=== PATIENT | male | born 1960 | race Caucasian/White ===

== ENCOUNTER 2017-05-23 08:15 | Emergency (ER) | payer SELFPAY ==
[~2017-05-23] VITALS: Ht 177.8 cm; Wt 80.0 kg
[~2017-05-23 08:15] MED LIST: AMLO2.5T PO; ASPI325T PO; LIPI40TA PO; QUET1TAB9 PO; TRIL300T PO
[2017-05-23 08:19] VITALS: BP 157/77; PULSE 66; RESP 15; TEMP 98.2; O2SAT 98
[2017-05-23 08:39] VITALS: BP 179/83; PULSE 59; RESP 16; O2SAT 98
[2017-05-23] MEDS ORDERED: MORPHINE SULFATE 4 MG/ML INJ IV PUSH ONE (09:15)
[2017-05-23] MEDS ORDERED: ONDANSETRON HCL 4 MG/2 ML VIAL IV PUSH ONE (09:15)
[2017-05-23 09:40] LABS: AUTOMATED NEUTROPHIL # 7.6 TH/MM3 (1.8-7.7); BASOPHIL % 0.5 % (0.0-2.0); EOSINOPHIL # 0.1 TH/MM3 (0-0.4); EOSINOPHIL % 0.9 % (0.0-4.0); HEMATOCRIT 44.2 % (39.0-51.0); HEMO FLAGS DIFF FINAL; LYMPH % 9.7 % (9.0-44.0); LYMPHOCYTE # 0.9 TH/MM3 (1.0-4.8); MEAN CELL VOLUME 83.9 FL (80.0-100.0); MEAN CORPUSCULAR HEMOGLOBIN 27.5 PG (27.0-34.0); MEAN CORPUSCULAR HGB CONC 32.7 % (32.0-36.0); MONO % 6.7 % (0.0-8.0); NEUT % 82.2 % (16.0-70.0); PLATELET COUNT 249 TH/MM3 (150-450); RED BLOOD COUNT 5.27 MIL/MM3 (4.50-5.90); RED CELL DISTRIBUTION WIDTH 13.2 % (11.6-17.2); WHITE BLOOD COUNT 9.3 TH/MM3 (4.0-11.0)
[2017-05-23] MEDS ORDERED: MORPHINE SULFATE 8 MG/ML INJ IV PUSH ONE (09:45)
[2017-05-23] MEDS ORDERED: PROPOFOL 200 MG/20 ML AMP IV ONE (10:00)
[2017-05-23 10:10] LABS: BICARBONATE 28.8 MEQ/L (21.0-32.0)
[2017-05-23 10:24] VITALS: O2SAT 99
[2017-05-23 10:25] VITALS: O2SAT 99
[2017-05-23 10:36] VITALS: BP 164/79; PULSE 63; RESP 16; O2SAT 100
--- NOTE | 2017-05-23 10:37 | PD ---
Physical Exam Date Seen by Provider: May 23, 2017 Time Seen by Provider: 10:15 Narrative I was asked to assist Dr. Lala with conscious sedation and reduction of an inguinal hernia. Data Data Last Documented VS Vital Signs Date Time Temp Pulse Resp B/P Pulse Ox O2 Delivery O2 Flow Rate FiO2 05/23/17 10:25 99 05/23/17 10:24 3.00 05/23/17 08:39 59 16 179/83 Room Air 05/23/17 08:19 98.2 Orders Complete Blood Count With Diff (05/23/17 09:06) Basic Metabolic Panel (Bmp) (05/23/17 09:06) Iv Access Insert/Monitor (05/23/17 09:06) Morphine Inj (Morphine Inj) (05/23/17 09:15) Ondansetron Inj (Zofran Inj) (05/23/17 09:15) Morphine Inj (Morphine Inj) (05/23/17 09:45) Propofol 200 Mg/20 Ml Inj (Diprivan 200 (05/23/17 10:00) Support, Scrotal Med Ea (05/23/17 10:25) ^ Scrotal Support (05/23/17 10:25) Labs Laboratory Tests Test 05/23/17 08:30 White Blood Count 9.3 TH/MM3 Red Blood Count 5.27 MIL/MM3 Hemoglobin 14.5 GM/DL Hematocrit 44.2 % Mean Corpuscular Volume 83.9 FL Mean Corpuscular Hemoglobin 27.5 PG Mean Corpuscular Hemoglobin 32.7 % Concent Red Cell Distribution Width 13.2 % Platelet Count 249 TH/MM3 Mean Platelet Volume 7.8 FL Neutrophils (%) (Auto) 82.2 % Lymphocytes (%) (Auto) 9.7 % Monocytes (%) (Auto) 6.7 % Eosinophils (%) (Auto) 0.9 % Basophils (%) (Auto) 0.5 % Neutrophils # (Auto) 7.6 TH/MM3 Lymphocytes # (Auto) 0.9 TH/MM3 Monocytes # (Auto) 0.6 TH/MM3 Eosinophils # (Auto) 0.1 TH/MM3 Basophils # (Auto) 0.0 TH/MM3 CBC Comment DIFF FINAL Differential Comment Sodium Level 137 MEQ/L Potassium Level 4.0 MEQ/L Chloride Level 103 MEQ/L Carbon Dioxide Level 28.8 MEQ/L Anion Gap 5 MEQ/L Blood Urea Nitrogen 12 MG/DL Creatinine 1.06 MG/DL Estimat Glomerular Filtration 72 ML/MIN Rate Random Glucose 94 MG/DL Calcium Level 9.0 MG/DL MDM Supervised Visit with JULIETA: No Procedures Procedure Narrative Time out was called. The correct patient was identified as was the correct location. Following conscious sedation and icing of the inguinal region, the right inguinal hernia was easily reduced using compression. Rosalinda Harvey MD May 23, 2017 10:37
--- NOTE | 2017-05-23 10:46 | PD ---
HPI Chief Complaint: Abdominal Pain Time Seen by Provider: 09:04 Travel History International Travel<30 days: No Contact w/Intl Traveler<30days: No Traveled to known affect area: No History of Present Illness HPI 56 y/o male presents with right lower quadrant abdominal pain over his hernia that will not go back and over the past 12 hours. He states he's had it before but will usually go back in. He denies any other concurrent complaints. Quality pain is sharp. Severity is moderate. Pain is worse with movement. PFSH Past Medical History Heart Rhythm Problems: Yes (HEART MURMUR) High Cholesterol: Yes Hypertension: Yes Inguinal Hernia: Yes (LEFT HERNIA REPAIR) Schizophrenia: Yes (SCHIZOAFFECTIVE ) Tetanus Vaccination: > 5 Years Influenza Vaccination: No Social History Alcohol Use: No Tobacco Use: No Substance Use: No Allergies-Medications (Allergen,Severity, Reaction): Coded Allergies: No Known Allergies (Unverified , 12/18/16) Reported Meds & Prescriptions Reported Meds & Active Scripts Active Review of Systems Except as stated in HPI: all other systems reviewed are Neg Physical Exam Narrative GENERAL: Well-nourished, well-developed patient. SKIN: Warm and dry. HEAD: Normocephalic and atraumatic. EYES: No injection or drainage. ENT: No nasal drainage noted. NECK: Supple, trachea midline. CARDIOVASCULAR: Regular rate and rhythm RESPIRATORY: Breath sounds equal bilaterally. No accessory muscle use. GASTROINTESTINAL: Abdomen soft, large right inguinal hernia noted without overlying skin changes that I am unable to reduce on initial attempt, nondistended. NEUROLOGICAL: Awake and alert. Motor and sensory grossly within normal limits. Normal speech. Data Data Last Documented VS Vital Signs Date Time Temp Pulse Resp B/P Pulse Ox O2 Delivery O2 Flow Rate FiO2 05/23/17 10:36 63 16 164/79 100 Nasal Cannula 2 05/23/17 08:19 98.2 Orders Complete Blood Count With Diff (05/23/17 09:06) Basic Metabolic Panel (Bmp) (05/23/17 09:06) Iv Access Insert/Monitor (05/23/17 09:06) Morphine Inj (Morphine Inj) (05/23/17 09:15) Ondansetron Inj (Zofran Inj) (05/23/17 09:15) Morphine Inj (Morphine Inj) (05/23/17 09:45) Propofol 200 Mg/20 Ml Inj (Diprivan 200 (05/23/17 10:00) Support, Scrotal Med Ea (05/23/17 10:25) ^ Scrotal Support (05/23/17 10:25) Mandatory Outpatient Referral (05/23/17 10:46) Labs Laboratory Tests Test 05/23/17 08:30 White Blood Count 9.3 TH/MM3 Red Blood Count 5.27 MIL/MM3 Hemoglobin 14.5 GM/DL Hematocrit 44.2 % Mean Corpuscular Volume 83.9 FL Mean Corpuscular Hemoglobin 27.5 PG Mean Corpuscular Hemoglobin 32.7 % Concent Red Cell Distribution Width 13.2 % Platelet Count 249 TH/MM3 Mean Platelet Volume 7.8 FL Neutrophils (%) (Auto) 82.2 % Lymphocytes (%) (Auto) 9.7 % Monocytes (%) (Auto) 6.7 % Eosinophils (%) (Auto) 0.9 % Basophils (%) (Auto) 0.5 % Neutrophils # (Auto) 7.6 TH/MM3 Lymphocytes # (Auto) 0.9 TH/MM3 Monocytes # (Auto) 0.6 TH/MM3 Eosinophils # (Auto) 0.1 TH/MM3 Basophils # (Auto) 0.0 TH/MM3 CBC Comment DIFF FINAL Differential Comment Sodium Level 137 MEQ/L Potassium Level 4.0 MEQ/L Chloride Level 103 MEQ/L Carbon Dioxide Level 28.8 MEQ/L Anion Gap 5 MEQ/L Blood Urea Nitrogen 12 MG/DL Creatinine 1.06 MG/DL Estimat Glomerular Filtration 72 ML/MIN Rate Random Glucose 94 MG/DL Calcium Level 9.0 MG/DL [facility] Medical Decision Making Medical Screen Exam Complete: Yes Emergency Medical Condition: Yes Medical Record Reviewed: Yes (past history confirmed) Interpretation(s) CBC & BMP Diagram 05/23/17 08:30 Differential Diagnosis Hernia, obstruction, mass Narrative Course will check labs and place flat with ice pack and try to reduce again Unable to reduce will dose with morphine and discuss with Gen. surgery Still unable to reduce will perform conscious sedation and have colleague assist with reduction Patient denies any new complaints and states that they are feeling better. Patient happy with care, all questions answered. Patient knows that follow up is incumbent on them and to return to the emergency room immediately if new or worsening symptoms develop. Patient given strict return precautions, vitals reviewed and are normal, agrees to further workup as an outpatient. mandatory referral placed Procedures Procedure Narrative After the risks and benefits were discussed the following procedure was performed: MODERATE SEDATION: The patient was placed on a school aide and pulse oximetry. An ambu bag and suction was immediately available at bedside. The patient was monitored by the nurse. Oxygen saturation, heart rate and blood pressure were monitored. Procedural sedation was acheived using 100mg of propofol . The patient was observed until awake and alert. Procedural Sedation time in attendance was 15 minutes. Physician Communication Physician Communication dr ba states to perform conscious sedation and reduce and call if unable to after that, refer for outpatient follow-up Diagnosis Primary Impression: Inguinal hernia Qualified Code: K40.91 - Unilateral recurrent inguinal hernia without obstruction or gangrene Referrals: Gómez Ba MD call for appointment Patient Instructions: General Instructions Additional Instructions: return as needed, wear scrotal support, follow with surgeon- mandatory consult placed Med/Other Pt SpecificInfo: No Change to Meds Disposition: 01 DISCHARGE HOME Condition: Stable Pauline Lala MD May 23, 2017 10:46
== END 2017-05-23 11:42 | disposition home or self-care (01) ==
LOC: NEPE 08:15
DX: K40.91 Unilateral inguinal hernia, without obstruction or gangrene, recurrent (principal); E78.00 Pure hypercholesterolemia, unspecified; I10 Essential (primary) hypertension
CPT/HCPCS: 49999; 80048; 85025; 96374; 96375; 99152; 99285; J2270; J2405

== ENCOUNTER 2017-05-28 05:11 | Inpatient (IN) | payer SELFPAY ==
[2017-05-28] VITALS (10 sets, daily range): BP systolic 119–182; BP diastolic 67–84; PULSE 48–88; RESP 16–20; TEMP 96–98; O2SAT 95–100
[~2017-05-28] VITALS: Ht 167.6 cm; Wt 82.0 kg
--- NOTE | 2017-05-28 05:23 | PD ---
HPI Chief Complaint: Abdominal Pain Time Seen by Provider: 05:14 Travel History International Travel<30 days: No Contact w/Intl Traveler<30days: No Traveled to known affect area: No History of Present Illness HPI This is a 56-year-old male who has a known right inguinal hernia who presents to the emergency department unable to reduce his hernia today. He has some right lower quadrant abdominal pain, moderate severity, constant associated with pain in his groin. He was seen here several days ago in the emergency department and required conscious sedation for reduction of his hernia. He has been working on establishing with patient assistance. He denies any vomiting, diarrhea or constipation. PFSH Past Medical History Heart Rhythm Problems: Yes (HEART MURMUR) High Cholesterol: Yes Diminished Hearing: No Hypertension: Yes Inguinal Hernia: Yes (LEFT HERNIA REPAIR) Schizophrenia: Yes (SCHIZOAFFECTIVE ) Tetanus Vaccination: Unknown Social History Alcohol Use: No Tobacco Use: No Substance Use: No Allergies-Medications (Allergen,Severity, Reaction): Coded Allergies: No Known Allergies (Unverified , 05/28/17) Reported Meds & Prescriptions Reported Meds & Active Scripts Active Review of Systems Except as stated in HPI: all other systems reviewed are Neg Physical Exam Narrative GENERAL:Well appearing, no acute distress SKIN: Focused skin assessment warm and dry. HEAD: Atraumatic. Normocephalic. EYES: Pupils equal and round. No injection or drainage. ENT: Moist mucous membranes NECK: Trachea midline. CARDIOVASCULAR: Regular rate and rhythm. 4/6 murmur heard over the left upper sternal border. RESPIRATORY: Clear to auscultation. Breath sounds equal bilaterally. GASTROINTESTINAL: Abdomen soft, non-tender, nondistended. : Large right inguinal hernia MUSCULOSKELETAL: No obvious deformities. NEUROLOGICAL: Awake and alert. No obvious cranial nerve deficits. Moving all extremities. PSYCHIATRIC: Appropriate mood and affect; insight and judgment normal. Data Data Last Documented VS Vital Signs Date Time Temp Pulse Resp B/P Pulse Ox O2 Delivery O2 Flow Rate FiO2 05/28/17 06:10 100 15.00 100 05/28/17 05:15 97.4 54 16 182/84 Orders Hydromorphone Pf Inj (Dilaudid Pf Inj) (05/28/17 05:30) ^ Insert Iv (05/28/17 05:21) Midazolam Inj (Versed Inj) (05/28/17 06:00) Propofol 200 Mg/20 Ml Inj (Diprivan 200 (05/28/17 06:15) [facility] Medical Decision Making Medical Screen Exam Complete: Yes Emergency Medical Condition: Yes Interpretation(s) Afebrile, no tachycardia, hypertensive Differential Diagnosis Incarcerated inguinal hernia, strangulated inguinal hernia, bowel obstruction Narrative Course This is a 56-year-old male who presents to the emergency department with pain in the right groin consistent with an incarcerated hernia. He has no signs of bowel obstruction. I attempted to reduce the hernia with Versed and pain control but was unsuccessful. Ultimately the decision was made to perform a conscious sedation. I was able to reduce the hernia after sedation with propofol. I spoke to Dr. Che who is on-call for general surgery. This is the second time the patient's been here within the week with an incarcerated hernia requiring conscious sedation. He is agreed to see the patient in the emergency department and see if there are any options for him Procedures Procedure Narrative After the risks and benefits were discussed the following procedure was performed: MODERATE SEDATION: The patient was placed on a monitor worker and pulse oximetry. An ambu bag and suction was immediately available at bedside. The patient was monitored by the nurse. Oxygen saturation, heart rate and blood pressure were monitored. Procedural sedation was acheived using 80 mg propofol . The patient was observed until awake and alert. Procedural Sedation time in attendance was 35 minutes. Incarcerated right inguinal hernia was reduced at the bedside by me. Diagnosis Primary Impression: Inguinal hernia Qualified Code: K40.91 - Unilateral recurrent inguinal hernia without obstruction or gangrene Patient Instructions: General Instructions Additional Instructions: If you develop severe or worsening abdominal pain, fever>100.4, persistent vomiting or inability to eat or drink return to the emergency department immediately. Follow up with your primary care physician in 1-2 days for a check-up. Med/Other Pt SpecificInfo: No Change to Meds Disposition: 01 DISCHARGE HOME Condition: Stable Payton Toro MD May 28, 2017 05:23
[2017-05-28] MEDS ORDERED: HYDROmorphone HCL PF 1 MG/ML VIAL IV PUSH ONE (05:30)
[2017-05-28] MEDS ORDERED: MIDAZOLAM HCL 2 MG/2 ML VIAL IV PUSH ONE (06:00)
[2017-05-28] MEDS ORDERED: PROPOFOL 200 MG/20 ML AMP IV ONE ×2 (06:15→12:00)
--- NOTE | 2017-05-28 09:17 | PD ---
Physical Exam Date Seen by Provider: May 28, 2017 Time Seen by Provider: 09:16 Narrative 56-year-old male came to the emergency room with history of inguinal hernia that had to be reduced under conscious sedation. Case was signed out to me by the previous ER physician to be seen by the general surgeon. Please refer to her notes in physical exam regarding further details. Dr. Che came and saw the patient and would like this patient to be admitted to medical service so that he can operate on him. Awaiting for medical clearance. I spoke with the family medicine team who has accepted the patient. Data Data Last Documented VS Vital Signs Date Time Temp Pulse Resp B/P Pulse Ox O2 Delivery O2 Flow Rate FiO2 05/28/17 08:56 98.0 54 18 119/67 99 05/28/17 07:05 Nasal Cannula 2 05/28/17 06:10 100 Orders Hydromorphone Pf Inj (Dilaudid Pf Inj) (05/28/17 05:30) ^ Insert Iv (05/28/17 05:21) Midazolam Inj (Versed Inj) (05/28/17 06:00) Propofol 200 Mg/20 Ml Inj (Diprivan 200 (05/28/17 06:15) Consult Luis M Nfs (05/28/17 ) Consent (05/28/17 09:01) Complete Blood Count With Diff (05/28/17 09:04) Prothrombin Time / Inr (Pt) (05/28/17 09:04) Comprehensive Metabolic Panel (05/28/17 09:04) Sodium Chlor 0.9% 1000 Ml Inj (Ns 1000 M (05/28/17 10:00) Diet Npo (05/28/17 Breakfast) Admit Order (Ed Use Only) (05/28/17 09:17) Labs Laboratory Tests Test 05/28/17 09:10 White Blood Count 8.1 TH/MM3 Red Blood Count 4.64 MIL/MM3 Hemoglobin 12.9 GM/DL Hematocrit 38.7 % Mean Corpuscular Volume 83.4 FL Mean Corpuscular Hemoglobin 27.8 PG Mean Corpuscular Hemoglobin 33.3 % Concent Red Cell Distribution Width 13.7 % Platelet Count 239 TH/MM3 Mean Platelet Volume 7.3 FL Neutrophils (%) (Auto) 77.6 % Lymphocytes (%) (Auto) 13.5 % Monocytes (%) (Auto) 7.4 % Eosinophils (%) (Auto) 0.9 % Basophils (%) (Auto) 0.6 % Neutrophils # (Auto) 6.3 TH/MM3 Lymphocytes # (Auto) 1.1 TH/MM3 Monocytes # (Auto) 0.6 TH/MM3 Eosinophils # (Auto) 0.1 TH/MM3 Basophils # (Auto) 0.0 TH/MM3 CBC Comment DIFF FINAL Differential Comment Prothrombin Time 11.2 SEC Prothromb Time International 1.0 RATIO Ratio Sodium Level 138 MEQ/L Potassium Level 4.1 MEQ/L Chloride Level 104 MEQ/L Carbon Dioxide Level 28.0 MEQ/L Anion Gap 6 MEQ/L Blood Urea Nitrogen 21 MG/DL Creatinine 0.90 MG/DL Estimat Glomerular Filtration 87 ML/MIN Rate Random Glucose 90 MG/DL Calcium Level 8.8 MG/DL Total Bilirubin 0.4 MG/DL Aspartate Amino Transf 11 U/L (AST/SGOT) Alanine Aminotransferase 15 U/L (ALT/SGPT) Alkaline Phosphatase 67 U/L Total Protein 5.9 GM/DL Albumin 3.3 GM/DL [facility] Supervised Visit with JULIETA: No Diagnosis Primary Impression: Inguinal hernia Qualified Code: K40.91 - Unilateral recurrent inguinal hernia without obstruction or gangrene Admitting Information Admitting Physician Requests: Admit Patient Instructions: General Instructions Additional Instruction: If you develop severe or worsening abdominal pain, fever>100.4, persistent vomiting or inability to eat or drink return to the emergency department immediately. Follow up with your primary care physician in 1-2 days for a check-up. Scripts Oxcarbazepine 300 Mg [id number] Mg PO BID #60 TAB Ref 0 Prov:Katie Brooks MD R2 05/29/17 Quetiapine 400 Mg [id number] Mg PO HS #30 TAB Ref 0 Prov:Katie Brooks MD R2 05/29/17 Atorvastatin 40 Mg Tab40 Mg PO HS #30 TAB Ref 0 Prov:Katie Brooks MD R2 05/29/17 Merced Lopez MD May 28, 2017 09:17
--- NOTE | 2017-05-28 09:35 | HHI.HP ---
[facility] Service Family Medicine Primary Care Physician No Primary Care Physician Admission Diagnosis recurrent incarcerated inguinal hernia Diagnoses: International Travel<30 Days: No Contact w/Intl Traveler<30days: No Known Affected Area: No History of Present Illness Mr. Gamez is a 56-year-old man with a history of left-sided hernia repair, schizoaffective disorder, hypertension, hypercholesterolemia who presented to the emergency department with an incarcerated rght-sided direct inguinal hernia. Patient received conscious sedation and had his hernia reduced in the emergency department. Dr. Che of general surgery was consulted and plans to take patient to the OR this afternoon. The patient has a h/o left sided inguinal hernia, which was repaired about 30 years ago. Pt reports that it has always been a little puffy on the right. The patient became aware of the right-sided hernia around the time when he became homeless about 1 year and 4 months ago. Since that time, it used to be hard when it was out, but it would go back in at night. night before coming in the first time, he could sleep, but it didn't go back in all night, then it reduced in the morning. Then between Thursday night and Thursday morning, it would not reduce. both ED visits, Patient was last seen on May 23 for the same problem of an incarcerated right sided direct inguinal hernia, which was reduced with conscious sedation with propofol and non-operative reduction. Patient denies any fever, chills, nausea, vomiting, but he does endorse constipation. Patient reports that he can walk up a flight of stairs without dyspnea. He denies any h/o cardiogenic syncope. Pt does have a heart murmur, but is asymptomatic. (Hayder Lynch MD R1) Review of Systems Constitutional: COMPLAINS OF: Change in appetite (dec joana associated with hernia pain), DENIES: Fever, Chills Endocrine: DENIES: Polydipsia, Polyuria Eyes: DENIES: Blurred vision, Diplopia, Vision loss Ears, nose, mouth, throat: DENIES: Hearing loss, Throat pain, Running Nose ( stuffy nose), Sinus Pain Respiratory: DENIES: Cough, Shortness of breath Cardiovascular: DENIES: Chest pain, Syncope, Dyspnea on Exertion, Lower Extremity Edema Gastrointestinal: COMPLAINS OF: Constipation, DENIES: Abdominal pain, Black stools, Bloody stools, Diarrhea, Nausea, Vomiting Genitourinary: DENIES: Dysuria Musculoskeletal: COMPLAINS OF: Back pain (chronic ), Neck pain (chronic ) Integumentary: DENIES: Rash Hematologic/lymphatic: DENIES: Bruising, Lymphadenopathy Neurologic: DENIES: Headache, Seizures Psychiatric: DENIES: Mood changes, Depression, Suicidal Ideation (Hayder Lynch MD R1) Past Family Social History Past Medical History schizoaffective - not currently on medication HTN Hypercholesterolemia Past Surgical History hernia repair on left 30 years ago Reported Medications Medication List Medications Last Reconciled on 12/18/16 11:45 by FELIX MONTE Atorvastatin (Lipitor)40 Mg Tab40 Mg PO HS #30 TAB Ref 3 Prov: Lexi Machuca MD 10/13/16 Quetiapine 200 Mg [id number] Mg PO HS #30 TAB Ref 0 Reported 10/13/16 Aspirin 325 Mg [id number] Mg PO DAILY #30 TAB Ref 0 Reported 10/13/16 Oxcarbazepine (Trileptal)300 Mg [id number] Mg PO BID #60 TAB Ref 0 Reported 10/13/16 Patient reports an adverse reaction to amlodipine and lisinopril. (Hayder Lynch MD R1) Allergies: Coded Allergies: Amlodipine (Verified Adverse Reaction, Unknown, 05/28/17) Lisinopril (Verified Adverse Reaction, Unknown, 05/28/17) Family History father had triple CABG mother with no serious medical problems Social History homeless went back to school. worked in [employer] for 21 years. 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 filed for SSD, but didn't want to appear in front of a territory business manager. No FREDERICK. (Hayder Lynch MD R1) Physical Exam Vital Signs Vital Signs Date Time Temp Pulse Resp B/P Pulse Ox O2 Delivery O2 Flow Rate FiO2 05/28/17 08:56 98.0 54 18 119/67 99 05/28/17 07:05 97.8 48 18 128/69 100 Nasal Cannula 2 05/28/17 07:00 18 05/28/17 06:51 15 05/28/17 06:10 100 15.00 100 05/28/17 05:15 97.4 54 16 182/84 99 Physical Exam GENERAL: This is a well-nourished, well-developed middle-aged male patient, in no apparent distress. SKIN: No rashes, ecchymoses or lesions. Cool and dry. HEAD: Atraumatic. Normocephalic. EYES: Pupils equal round and reactive. Extraocular motions intact. No scleral icterus. No injection or drainage. ENT: Nose without bleeding, purulent drainage or septal hematoma. Throat without erythema, tonsillar hypertrophy or exudate. Uvula midline. Airway patent. NECK: Trachea midline. No JVD or lymphadenopathy. Supple, nontender, no meningeal signs. CARDIOVASCULAR: Regular rate and rhythm without murmurs, gallops, or rubs. RESPIRATORY: Except for some mild inspiratory crackles at the right lung base, lungs clear to auscultation with breath sounds equal bilaterally. No wheezes or rhonchi. GASTROINTESTINAL: Soft bulge between the right side of the abdomen right inguinal area. Otherwise, abdomen soft, non-tender, nondistended. No hepato- splenomegaly, or palpable masses. No guarding. MUSCULOSKELETAL: Extremities without clubbing, cyanosis, or edema. No joint tenderness, effusion, or edema noted. No calf tenderness. NEUROLOGICAL: Awake and alert. Cranial nerves II through XII grossly intact. Motor and sensory grossly within normal limits. Normal speech. (Hayder Lynch MD R1) Course In the emergency department, patient had IV insertion, Dilaudid 1 mg IV 1, Versed 2 mg IV 1, propofol 80 mg IV 1, surgery consult, surgical consent, nothing by mouth, normal saline IV, CMP, PT/INR, CBC, admission order. (Hayder Lynch MD R1) Assessment and Plan Assessment and Plan Mr. Gamez is a 56-year-old man with a history of schizoaffective disorder, hypertension, hypercholesterolemia who presented to the emergency department with an incarcerated direct inguinal hernia. Patient received conscious sedation and had his hernia reduced in the emergency department. Dr. Che of general surgery was consulted and plans to take patient to the OR either this afternoon or tomorrow. Patient is medically optimized and a good candidate for this surgery. Code Status Full code Discussed Condition With Patient seen and discussed with Dr. Marquis. w/d/w Dr. Warren. (Hayder Lynch MD R1) Attending Attestation Patient seen and examined, discussed with resident team. I agree with assessment and management as documented and discussed with me. The patient has been seen and examined. The chart and all resident notes have been reviewed. I agree that inpatient care is appropriate and that a two midnight stay is expected for the reasons documented in the resident history and physical. I have discussed this with the resident and certify the resident s order for inpatient admission. Catarino Gamez is a 56yo gentleman with h/o right inguinal hernia and left inguinal hernia s/p repair admitted for surgical management of incarcerated right inguinal hernia. Pt seen in PACU after his surgery. At the time of my interview/exam, he is without complaints. He denies pain at surgical site, nausea, SOB, chest pain. He is interested in seeking care again for his schizoaffective disorder as well as HTN. Appreciate Dr. York, general surgery, in his care for this patient. (Nataliia Warren MD) Problem List: (1) Inguinal hernia Status: Acute Plan: Mr. Gamez is a 56-year-old man with a history of schizoaffective disorder, hypertension, hypercholesterolemia who presented to the emergency department with an incarcerated direct inguinal hernia. Patient received conscious sedation and had his hernia reduced in the emergency department. Dr. Che of general surgery was consulted and plans to take patient to the OR either this afternoon or tomorrow. Patient is medically optimized and a good candidate for this surgery. Admit to inpatient for surgery Nothing by mouth Maintenance IV fluids with normal saline IV at 122 mL per hour Monitor intake and output Monitor vital signs CBC, CMP, coags, magnesium Pain control as needed Zofran for nausea as needed Anticonstipation medications: Ivonne-Colace 1 tab by mouth twice a day and other medications when necessary Pharmacologic DVT prophylaxis is contraindicated given the patient will be taken to surgery soon; hold patient's home medication of aspirin SCDs bilaterally Incentive spirometer (2) Schizoaffective disorder Status: Acute Plan: Patient with history of schizophrenia disorder has not been on his medications. Patient wants to restart his medications. He reports that he like to follow-up with Restart patient's home medications of Trileptal, Seroquel (3) HTN (hypertension) Status: Acute Plan: Patient's blood pressure currently well-controlled. We'll consider adding antihypertensives if needed. Case management consult to help pt establish with (4) Hypercholesteremia Status: Acute Plan: Patient has been unable to take his Lipitor. Restart patient's home medication of Lipitor Case management consult to help patient establish with DrGalen (5) Contraindication to anticoagulation therapy Status: Acute Plan: Pharmacologic DVT prophylaxis is contraindicated given the patient will be taken to surgery soon; hold patient's home medication of aspirin (6) FEN, ppx Status: Acute Plan: Fluids: Maintenance IV fluids with Normal saline at 122 mL per hour Electrolytes: Monitor and replete Nutrition: Nothing by mouth DVT prophylaxis: Contraindicated as above GI prophylaxis: Not currently indicated (Hayder Lynch MD R1) Physician Certification 2 Midnight Certification Type: Admission for Inpatient Services Order for Inpatient Services The services are ordered in accordance with Medicare regulations or non- Medicare payer requirements, as applicable. In the case of services not specified as inpatient-only, they are appropriately provided as inpatient services in accordance with the 2-midnight benchmark. Estimated LOS (days): 2 2 days is the estimated time the patient will need to remain in the hospital, assuming treatment plan goals are met and no additional complications. Post-Hospital Plan: Not yet determined (Hayder Lynch MD R1) Problem Qualifiers (1) Inguinal hernia: Qualified Code: K40.91 - Unilateral recurrent inguinal hernia without obstruction or gangrene Hayder Lynch MD R1 May 28, 2017 09:35 Nataliia Warren MD May 28, 2017 21:08
[2017-05-28 09:43] LABS: AUTOMATED NEUTROPHIL # 6.3 TH/MM3 (1.8-7.7); BASOPHIL % 0.6 % (0.0-2.0); EOSINOPHIL # 0.1 TH/MM3 (0-0.4); EOSINOPHIL % 0.9 % (0.0-4.0); HEMATOCRIT 38.7 % (39.0-51.0); HEMO FLAGS DIFF FINAL; LYMPH % 13.5 % (9.0-44.0); LYMPHOCYTE # 1.1 TH/MM3 (1.0-4.8); MEAN CELL VOLUME 83.4 FL (80.0-100.0); MEAN CORPUSCULAR HEMOGLOBIN 27.8 PG (27.0-34.0); MEAN CORPUSCULAR HGB CONC 33.3 % (32.0-36.0); MONO % 7.4 % (0.0-8.0); NEUT % 77.6 % (16.0-70.0); PLATELET COUNT 239 TH/MM3 (150-450); RED BLOOD COUNT 4.64 MIL/MM3 (4.50-5.90); RED CELL DISTRIBUTION WIDTH 13.7 % (11.6-17.2); WHITE BLOOD COUNT 8.1 TH/MM3 (4.0-11.0)
[2017-05-28 09:51] LABS: PROTHROMBIN TIME - PATIENT 11.2 SEC (9.8-11.6)
[2017-05-28 09:58] LABS: ANION GAP 6 MEQ/L (5-15); AST (GOT) 11 U/L (15-37); BLOOD UREA NITROGEN 21 MG/DL (7-18); CHLORIDE 104 MEQ/L (98-107); GLOMERULAR FILTRATION RATE 87 ML/MIN (>89); POTASSIUM 4.1 MEQ/L (3.5-5.1); SODIUM (NA) 138 MEQ/L (136-145)
[2017-05-28 10:00] LABS: ALT (GPT) 15 U/L (12-78)
[2017-05-28] MEDS ORDERED: SENNOSIDES 8.6 MG TAB PO PRN (10:00)
[2017-05-28] MEDS ORDERED: MAGNESIUM HYDROXIDE SUSP 30 ML CUP PO PRN (10:00)
[2017-05-28] MEDS ORDERED: ACETAMINOPHEN/HYDROcodone 325 MG/7.5 MG TAB PO PRN ×2 (10:00→12:30)
[2017-05-28] MEDS ORDERED: ONDANSETRON HCL 4 MG/2 ML VIAL IVP PRN (10:00)
[2017-05-28] MEDS ORDERED: ACETAMINOPHEN 325 MG TAB PO PRN ×2 (10:00)
[2017-05-28] MEDS ORDERED: SODIUM CHLORIDE 0.9% FLUSH 10 ML FLUSH IV FLUSH PRN (10:00)
[2017-05-28] MEDS ORDERED: SODIUM CHLOR 0.9% 1000 ML INJ 1,000 ML IV SCH (10:00)
[2017-05-28] MEDS ORDERED: MORPHINE SULFATE 8 MG/ML INJ IV PUSH PRN (10:00)
[2017-05-28] MEDS ORDERED: ACETAMINOPHEN/HYDROcodone 325 MG/5 MG TAB PO PRN (10:00)
[2017-05-28] MEDS ORDERED: ZOLPIDEM TARTRATE 5 MG TAB PO PRN (10:00)
[2017-05-28] MEDS ORDERED: NALOXONE HCL 0.4 MG/ML AMP IV PRN ×2 (10:00)
[2017-05-28] MEDS ORDERED: LACTULOSE SYRUP 20 GM/30 ML CUP PO PRN (10:00)
[2017-05-28] MEDS ORDERED: BISACODYL 10 MG SUPP RECTAL PRN (10:00)
[2017-05-28 10:02] LABS: ALKALINE PHOSPHATASE 67 U/L (45-117); TOTAL BILIRUBIN ADULT 0.4 MG/DL (0.2-1.0)
[2017-05-28] MEDS: DOCUSATE SODIUM 50 MG/SENNA 8.6 MG TAB PO SCH ×2 (10:07→20:08)
[2017-05-28] MEDS: SODIUM CHLOR 0.9% 1000 ML INJ 1,000 ML IV SCH (10:07)
[2017-05-28] MEDS ORDERED: MIDAZOLAM HCL 2 MG/2 ML VIAL ONE (11:12)
[2017-05-28] MEDS ORDERED: fentaNYL CITRATE 250 MCG/5 ML AMP ONE (11:12)
[2017-05-28] MEDS ORDERED: ACETAMINOPHEN 1000 MG/100 ML VIAL IV ONE (11:12)
[2017-05-28] MEDS ORDERED: HYDROmorphone HCL PF 2 MG/ML VIAL ONE (11:12)
[2017-05-28] MEDS ORDERED: LIDOCAINE 1%/EPINEPHrine 1:100,000 SOLN 20 ML VIAL ONE (11:16)
[2017-05-28] MEDS ORDERED: SODIUM BICARBONATE 8.4% INJ 50 ML ONE (11:16)
[2017-05-28] MEDS ORDERED: ceFAZolin 2 GM PREMIX 50 ML ONE (11:22)
--- NOTE | 2017-05-28 11:54 | EKG ---
Date Performed: 05/28/2017 Time Performed: 10:13:55 PTAGE: 56 years EKG: SINUS BRADYCARDIA WITH SINUS ARRHYTHMIA PROBABLE LATERAL MYOCARDIAL INFARCTION T-WAVE ABNOR MALITY, CONSIDER ANTERIOR ISCHEMIA ABNORMAL ECG NO PREVIOUS TRACING DOCTOR: El Sarabia Interpretating Date/Time 05/28/2017 11:51:55
[2017-05-28] MEDS ORDERED: ONDANSETRON HCL 4 MG/2 ML VIAL IV PUSH ONE (12:00)
[2017-05-28] MEDS ORDERED: KETOROLAC TROMETHAMINE 60 MG/2 ML (IM) VIAL IM ONE (12:00)
[2017-05-28] MEDS ORDERED: NEOSTIGMINE 3 MG/3 ML SYR IV ONE (12:00)
[2017-05-28] MEDS ORDERED: KETOROLAC TROMETHAMINE 30 MG/ML (IVP) VIAL IV PUSH PRN (12:30)
[2017-05-28] MEDS ORDERED: *ENALAPRILAT 1.25 MG/ML VIAL PERIprocedural Use ONLY ONE (12:49)
[2017-05-28] MEDS ORDERED: DO NOT ADM ANY ANTICOAGULANT DRUGS PRN (13:30)
[2017-05-28] MEDS ORDERED: QUET1TAB11 PO (15:05)
[2017-05-28] MEDS ORDERED: ATOR40TA16 PO (15:05)
[2017-05-28] MEDS ORDERED: ASPI325T PO (15:05)
[2017-05-28] MEDS ORDERED: OXCA300T PO (15:05)
--- NOTE | 2017-05-28 16:47 | MP ---
cc: DONYA TOMLINSON M.D. DATE OF SURGERY 05/28/2017 PREOPERATIVE DIAGNOSIS Symptomatic right inguinal hernia status post incarceration episode x2. POSTOPERATIVE DIAGNOSIS 1. Symptomatic right inguinal hernia status post incarceration episode x2. 2. Indirect and direct right inguinal hernia. PROCEDURE PERFORMED Open right inguinal hernia repair with mesh. SURGEON Donya Tomlinson MD ANESTHESIA General LMA. COMPLICATIONS None. INDICATIONS FOR PROCEDURE Mr. Gamez is a pleasant 56-year-old homeless gentleman who presented to the emergency department with incarcerated right inguinal hernia. He had been to the emergency department twice in the last several days. They were able to reduce the hernia with conscious sedation. The patient came back again today with the hernia incarcerated and had to have conscious sedation. Because he has had multiple visits with incarceration surgical consultation was requested. The patient was seen and evaluated and offered immediate repair with mesh. Risks and benefits of repair was discussed with him. He was agreeable. DETAILS The patient was identified, brought to the operating room, placed supine on the operating table. After adequate general anesthesia had been achieved via LMA the right groin and genitals were prepped and draped in the standard surgical fashion. 0.25% Marcaine was injected in the right groin. Transverse incision was made. Dissection was carried down to subcutaneous tissue down through Syeda fascia were we immediately encountered a hernia sac. The hernia itself had obliterated the external oblique and therefore we did not open it. The cord structures and hernia sac were carefully encircled with a Von drain. Once we did this we followed it back to the level of the internal ring. The inguinal floor was completely obliterated. The patient was noted to have a large hernia sac that involved both the direct and indirect spaces. Using meticulous dissection the large hernia sac was carefully dissected off of the cord structures back to the level of the internal ring. Once we did this we are able to reduce the hernia sac back into the abdominal cavity without difficulty. Attention was now directed to repair. Repair was accomplished using a piece of polypropylene mesh. Mesh was secured medially at the pubic tubercle and inferiorly along the shelving edge of the inguinal ligament and superior along the conjoined tendon. A slit was cut for the cord structures and they were allowed to be passed through the mesh. The slit was reapproximated with the Prolene suture, tightening the internal ring to prevent the hernia sac from coming back down. The two leafs of the mesh were then tucked up under the external oblique. With this the inguinal floor and internal ring were completely reconstructed with mesh. Wound was copiously irrigated with normal saline solution. Testicle was returned to its anatomic position in the right hemiscrotum with care to make sure it was not twisted. As the external oblique had been obliterated we went ahead and closed the Syeda fascia directly over the repair. Subcutaneous tissue was closed with a 3-0 Vicryl and skin was closed with 4-0 Vicryl. 0.25% Marcaine was injected in the wound prior to closing. The patient tolerated the procedure well, was awakened, brought to recovery in stable condition. MD FELISA Vale/KT /12:37 PM /4:40 PM
[2017-05-28] MEDS: SODIUM CHLORIDE 0.9% FLUSH 10 ML FLUSH IV FLUSH SCH (20:07)
[2017-05-28] MEDS: OXcarbazepine 300 MG TAB PO SCH (20:09)
[2017-05-28] MEDS ORDERED: ATORVASTATIN 40 MG TAB PO SCH (21:00)
[2017-05-28] MEDS ORDERED: QUEtiapine FUMARATE 200 MG TAB PO SCH (21:00)
[2017-05-29 00:28] VITALS: BP 100/56; PULSE 60; RESP 17; TEMP 96.9; O2SAT 96
[2017-05-29 05:38] LABS: AUTOMATED NEUTROPHIL # 10.5 TH/MM3 (1.8-7.7); BASOPHIL % 0.1 % (0.0-2.0); EOSINOPHIL % 0.2 % (0.0-4.0); HEMATOCRIT 35.6 % (39.0-51.0); HEMO FLAGS DIFF FINAL; LYMPH % 8.8 % (9.0-44.0); LYMPHOCYTE # 1.1 TH/MM3 (1.0-4.8); MEAN CELL VOLUME 82.5 FL (80.0-100.0); MEAN CORPUSCULAR HEMOGLOBIN 28.3 PG (27.0-34.0); MEAN CORPUSCULAR HGB CONC 34.3 % (32.0-36.0); MONO % 9.9 % (0.0-8.0); PLATELET COUNT 224 TH/MM3 (150-450); RED BLOOD COUNT 4.32 MIL/MM3 (4.50-5.90); RED CELL DISTRIBUTION WIDTH 13.6 % (11.6-17.2)
[2017-05-29 06:05] LABS: BICARBONATE 27.2 MEQ/L (21.0-32.0); POTASSIUM 4.3 MEQ/L (3.5-5.1)
[2017-05-29 08:00] VITALS: BP 125/69; PULSE 61; RESP 17; TEMP 97.5; O2SAT 97
--- NOTE | 2017-05-29 08:06 | MB ---
cc: FRANCO VIEIRA MD DATE OF CONSULTATION 05/28/2017 REASON FOR CONSULTATION Recurrent incarcerated inguinal hernia on the right. HISTORY OF PRESENT ILLNESS The patient is a 56-year-old male with a history of left-sided inguinal hernia. The patient with several medical issues including hypertension, hypercholesteremia, and schizoaffective disorder presented to the emergency department with complaints of right sided pain and right inguinal hernia. The patient notes that the hernia was reduced on Thursday05/23/2017 requiring heavy sedation after being sick out for a while and the patient has had a long history of this. The patient states the hernia progressively bulged again with an acute onset of pain requiring heavy sedation and reduction in the emergency department. Patient is homeless with poor compliance and poor follow-up care. The patient did have an incarcerated hernia sticking out for approximately 48 hours questionably, therefore given recurrent repeat episode, severe pain and the risk of recurrence with bowel incarceration, an operative consultation to surgery was done. On my exam, the patient is resting a little more comfortably now, but still states significant pain. The patient has received IV pain medication. He denies any fevers or chills, nausea or vomiting. PAST MEDICAL HISTORY 1. Schizoaffective 2. History of the left inguinal hernia status post repair. 3. History of hypercholesteremia. 4. History of hypertension. PAST SURGICAL HISTORY Left hernia repair 30 years ago. MEDICATIONS See EMR. ALLERGIES AMLODIPINE, LISINOPRIL FAMILY HISTORY Father had coronary artery disease and a CABG. Mother is healthy. SOCIAL HISTORY Homeless. Denies smoking, ETOH or IVDA. REVIEW OF SYSTEMS GENERAL: The patient denies headache or pain. HEENT: Denies eye pain, ear pain. NECK: Denies swelling or pain. LUNGS: Denies cough or wheeze. HEART: Denies palpitation or chest pain. ABDOMEN: Denies nausea or vomiting. Does complain of groin pain hernia. : Denies dysuria or hematuria. MUSCULOSKELETAL: Denies arthralgia or myalgias. NEUROLOGIC: Schizoaffective, denies change in mood. ENDOCRINE: Denies polyuria or polydipsia. PHYSICAL EXAMINATION GENERAL: The patient is in no acute distress. VITAL SIGNS: Temperature 97.8, respiration 18, blood pressure 128/69, pulse 48, saturation 100% on two liters nasal cannula. HEENT: PERRLA, pupils equal round and reactive. LUNGS: Clear with bilateral expansion. HEART: S1-S2 regular rhythm. ABDOMEN: Soft, nontender, right groin large palpable inguinal defect. Left groin with incision well-healed well scarred. BACK: Normal curvature. No step-offs. INTEGUMENT: No obvious skin masses or lesions. LABORATORY AND DIAGNOSTIC DATA WBC 8.1, hemoglobin 12.9, hematocrit 38.7, platelets 239. Sodium 138, potassium 4.1, chloride 104, BUN 21, creatinine 0.9, calcium 8.8, AST 11, ALT 15, albumin 3.3, INR 1. ASSESSMENT The patient is a 56-year-old male room with recurrent right inguinal incarceration status post reduction, symptomatic right inguinal hernia. PLAN After a full clinical, radiologic and laboratory workup, the patient with the above-named issue including a history of multiple incarcerated longstanding hernia. The patient poor compliance for followup and given the severe recurrent episodes, at this point discussion with the patient regarding need for operative repair of inguinal hernia. The patient will be n.p.o. IV fluids, pain control. We will discuss and take the patient to the operating room for repair of the hernia. Discussed with the patient in detail. MD ROSELIA Yepez/VIJI /4:04 AM /7:54 AM
[2017-05-29] MEDS: OXcarbazepine 300 MG TAB PO SCH (08:56)
[2017-05-29] MEDS: DOCUSATE SODIUM 50 MG/SENNA 8.6 MG TAB PO SCH (08:56)
[2017-05-29 08:57] VITALS: O2SAT 98
[2017-05-29] MEDS: SODIUM CHLORIDE 0.9% FLUSH 10 ML FLUSH IV FLUSH SCH (08:59)
--- NOTE | 2017-05-29 09:38 | HHI.PR ---
Subjective Subjective Notes feels fine, very little pain. Objective Vitals/I&O Vital Signs Date Time Temp Pulse Resp B/P Pulse Ox O2 Delivery O2 Flow Rate FiO2 05/29/17 08:57 98 21 05/29/17 08:00 97.5 61 17 125/69 05/28/17 16:05 Room Air 05/28/17 12:39 2 Labs Laboratory Tests Test 05/28/17 05/29/17 13:26 04:54 Magnesium Level 1.7 White Blood Count 13.0 Red Blood Count 4.32 Hemoglobin 12.2 Hematocrit 35.6 Mean Corpuscular Volume 82.5 Mean Corpuscular Hemoglobin 28.3 Mean Corpuscular Hemoglobin 34.3 Concent Red Cell Distribution Width 13.6 Platelet Count 224 Mean Platelet Volume 7.5 Neutrophils (%) (Auto) 81.0 Lymphocytes (%) (Auto) 8.8 Monocytes (%) (Auto) 9.9 Eosinophils (%) (Auto) 0.2 Basophils (%) (Auto) 0.1 Neutrophils # (Auto) 10.5 Lymphocytes # (Auto) 1.1 Monocytes # (Auto) 1.3 Eosinophils # (Auto) 0.0 Basophils # (Auto) 0.0 CBC Comment DIFF FINAL Differential Comment Sodium Level 141 Potassium Level 4.3 Chloride Level 105 Carbon Dioxide Level 27.2 Anion Gap 9 Blood Urea Nitrogen 19 Creatinine 1.11 Estimat Glomerular Filtration 68 Rate Random Glucose 98 Calcium Level 8.8 Wound Wound : Wound Location: Abdomen Appearance: Clean & Dry Dressing: Dry A/P Assessment and Plan POD1 open RIH repair with mesh ok to dc home, rx on chart fu in office 1 week may shower tomorrow. Lamin York MD May 29, 2017 09:38
[2017-05-29] MEDS: SODIUM CHLOR 0.9% 1000 ML INJ 1,000 ML IV SCH (10:27)
[2017-05-29] MEDS ORDERED: ASPI81CH CHEW (11:18)
[2017-05-29] MEDS ORDERED: OXCA300T PO (11:18)
[2017-05-29] MEDS ORDERED: ATOR40TA16 PO (11:18)
[2017-05-29] MEDS ORDERED: QUET1TAB11 PO (11:18)
--- NOTE | 2017-05-29 11:38 | HHI.DCPOC ---
Discharge Care Plan Diagnosis: (1) S/P inguinal hernia repair (2) Inguinal hernia (3) Schizoaffective disorder (4) Hypercholesteremia Goals to Promote Your Health * To prevent worsening of your condition and complications * To maintain your health at the optimal level Directions to Meet Your Goals Take your medications as prescribed Follow your dietary instruction Follow activity as directed Keep your appointments as scheduled Take your immunizations and boosters as scheduled If your symptoms worsen call your PCP, if no PCP go to Urgent Care Center or Emergency Room Smoking is Dangerous to Your Health. Avoid second hand smoke Call the 24-hour hour crisis hotline for domestic abuse at Katie Brooks MD R2 May 29, 2017 11:38
--- NOTE | 2017-05-29 12:29 | HHI.FPPN ---
Subjective Remarks No acute events overnight. Vital signs unremarkable. This morning patient is up walking around without issues. He states that he is doing well and has no complaints. Right groin feels slightly sore but otherwise he is okay. Denies chest pain, SOB. Patient has not passed gas or had a bowel movement but denies any abdominal discomfort or nausea/vomiting. He otherwise feels well to be discharged home today. (Katie Brooks MD R2) Objective Vitals Vital Signs Date Time Temp Pulse Resp B/P Pulse Ox O2 Delivery O2 Flow Rate FiO2 05/29/17 08:57 98 21 05/29/17 08:00 97.5 61 17 125/69 97 05/29/17 00:28 96.9 60 17 100/56 96 05/28/17 20:18 96.0 78 20 154/75 98 05/28/17 18:18 95 21 05/28/17 17:20 96.9 88 18 133/75 95 05/28/17 16:05 72 16 135/69 96 Room Air 05/28/17 15:05 52 16 122/59 97 Room Air 05/28/17 14:15 60 16 132/64 96 Room Air 05/28/17 14:00 58 16 106/58 97 Room Air 05/28/17 13:45 57 16 109/58 95 Room Air 05/28/17 13:30 62 16 128/62 97 Room Air 05/28/17 13:15 60 16 133/64 97 Room Air 05/28/17 13:00 58 16 140/67 95 Room Air 05/28/17 12:45 53 16 215/88 95 Room Air 05/28/17 12:39 97.5 56 14 182/86 100 Nasal Cannula 2 I/O 05/28/17 05/28/17 05/28/17 05/29/17 05/29/17 05/29/17 06:59 14:59 22:59 06:59 14:59 22:59 Intake Total 480 ml 360 ml Balance 480 ml 360 ml Intake Oral 480 ml 360 ml # Voids 2 2 (Katie Brooks MD R2) Result Diagram: 05/29/17 0454 05/29/17 045 Objective Remarks GEN: Well-developed, well-nourished patient. No acute distress. Walking around the room without issues. CV: Regular rate and rhythm without obvious gallops or rubs. Grade 3/6 DARIUS LUNGS: Clear to auscultation bilaterally. Normal respiratory effort. No wheezes , rales, rhonchi. GI: Soft, nontender, nondistended. Bowel sounds present. No palpable masses. : Right inguinal incision has clean and dry Steri-Strips. No surrounding erythema or signs of infection. NEURO/PSYCH: Awake, alert. Appropriate insight and judgment. Normal speech ( Katie Brooks MD R2) A/P Assessment and Plan Mr. Gamez is a 56-year-old man with a history of schizoaffective disorder, hypertension, hypercholesterolemia who presented to the emergency department with an incarcerated direct inguinal hernia. Discharge Planning Today as cleared by surgery sdw Dr. Warren and Dr. Marquis (Katie Brooks MD R2) Attending Attestation Patient seen, examined, and discussed with resident team. I agree with assessment and management as documented and discussed with me. Pt without significant complaints. He is eating and tolerating PO. Discharge home today, as patient has been cleared by surgery. Case management has assisted with discharge needs. (Nataliia Warren MD) Problem List: (1) Inguinal hernia Status: Acute Plan: Presented with an incarcerated direct inguinal hernia. Patient received conscious sedation and had his hernia reduced in the emergency department. Continues to be clinical stable post op. -Leukocytosis today likely due to stress response from surgery. Electrolytes unremarkable -Incentive spirometry Surgery consulted: appreciate recommendations * POD 1 RIH repair with mesh * okay to dc home with pain meds * no shower until 05/30/17 (2) Schizoaffective disorder Status: Chronic Plan: Patient with history of schizophrenia disorder has not been on his medications. Patient wants to restart his medications. He reports that he like to follow-up with Dr. Restart patient's home medications of Trileptal, Seroquel will discuss provided at discharge (3) HTN (hypertension) Status: Chronic Plan: Patient's blood pressure currently well-controlled. We'll consider adding antihypertensives if needed. (4) Hypercholesteremia Status: Chronic Plan: Patient has been unable to take his Lipitor. Restart patient's home medication of Lipitor (5) Contraindication to anticoagulation therapy Status: Acute Plan: Pharmacologic DVT prophylaxis is contraindicated given the patient was taken to surgery (6) FEN, ppx Status: Acute Plan: Fluids: Maintenance IV fluids with Normal saline at 122 mL per hour Electrolytes: Monitor and replete Nutrition: Regular DVT prophylaxis: Chemical Contraindicated as above. Patient ambulating in the room without issues. GI prophylaxis: Not currently indicated (Katie Brooks MD R2) Problem Qualifiers (1) Inguinal hernia: Qualified Code: K40.91 - Unilateral recurrent inguinal hernia without obstruction or gangrene Katie Brooks MD R2 May 29, 2017 12:29 Nataliia Warren MD May 29, 2017 15:09 (1) Inguinal hernia: Qualified Code: K40.91 - Unilateral recurrent inguinal hernia without obstruction or gangrene Katie Brooks MD R2 May 29, 2017 12:29
== END 2017-05-29 14:52 | disposition home or self-care (01) | DRG 352 ==
LOC: NEPE 05:11 → NEDA 09:19 → N07B 17:10
PROVIDERS: ADMIT Family Medicine; ATTEND Family Medicine
PROC: 0YU50JZ Supplement Right Inguinal Region with Synthetic Substitute, Open Approach (ICD-10-PCS; principal; 2017-05-28 11:27)
DX: K40.31 Unilateral inguinal hernia, with obstruction, without gangrene, recurrent (principal); F25.9 Schizoaffective disorder, unspecified; I10 Essential (primary) hypertension; E78.5 Hyperlipidemia, unspecified; E78.00 Pure hypercholesterolemia, unspecified; Z59.0 Homelessness
CPT/HCPCS: 49999; 80048; 80053; 83735; 85025; 85610; 93005; 94150; 96374; 99152; 99153; C1781; J0131; J0690; J1170; J1885; J2250; J2405; J2710; J3010; J7030